=== PATIENT | female | born 1970 | race Caucasian/White ===

== ENCOUNTER 2017-02-13 19:13 | Emergency (ER) | payer SELFPAY ==
[~2017-02-13] VITALS: Ht 157.4 cm; Wt 72.6 kg
[~2017-02-13 19:13] MED LIST: AMOXICILLIN500 MG PO; COMBIVENT1 ARO IH; DONNATAL1 TAB PO; EFFEXOR75 MG PO; HYDROCODONE BIT1 T11 PO; PEPCID20 MG PO; PREDNISONE20 M1 PO; PROVENTIL0.09 MG/A1 INH; ROBAXIN750 MG PO; TRIMOX500 MG PO; ULTRAM50 MG PO; XANAX0.25 MG PO; ZYRTEC10 MG PO
[2017-02-13] MEDS ORDERED: VENTOLIN 02.5 MG/3 M INH (19:29)
[2017-02-13] MEDS ORDERED: ATIVAN0.5 MG PO (19:30)
[2017-02-13] MEDS ORDERED: PROAIR HFA8.5 GM INH (19:31)
[2017-02-13] MEDS ORDERED: PREDNISONE20 M1 PO (20:29)
== END 2017-02-13 20:35 | disposition home or self-care (01) ==
LOC: ED 19:13
DX: J45.901 Unspecified asthma with (acute) exacerbation (principal); F17.200 Nicotine dependence, unspecified, uncomplicated; Z88.6 Allergy status to analgesic agent

== ENCOUNTER 2017-05-07 03:29 | Emergency (ER) | payer SELFPAY ==
[~2017-05-07] VITALS: Ht 157.4 cm; Wt 70.3 kg
[~2017-05-07 03:29] MED LIST changes: +ATIVAN0.5 MG PO; +PROAIR HFA8.5 GM INH; +VENTOLIN 02.5 MG/3 M INH
[2017-05-07] MEDS ORDERED: PREDNISONE20 M1 PO (04:27)
[2017-05-07] MEDS ORDERED: DUONEB 3 MG/3 ML3 M1 INH (04:27)
[2017-05-07] MEDS ORDERED: ATIVAN1 MG PO (04:27)
== END 2017-05-07 04:47 | disposition home or self-care (01) ==
LOC: ED 03:29
DX: F41.1 Generalized anxiety disorder (principal); F43.0 Acute stress reaction; R06.02 Shortness of breath; J45.909 Unspecified asthma, uncomplicated; F17.200 Nicotine dependence, unspecified, uncomplicated; Z88.6 Allergy status to analgesic agent; Z79.899 Other long term (current) drug therapy

== ENCOUNTER 2017-06-28 13:56 | Emergency (ER) | payer SELFPAY ==
[~2017-06-28] VITALS: Ht 154.9 cm; Wt 70.3 kg
[~2017-06-28 13:56] MED LIST changes: +ATIVAN1 MG PO; +DUONEB 3 MG/3 ML3 M1 INH
[2017-06-28 14:24] LABS: BASO # 0.1 10*3/uL (0.0-0.1); BASO % 1.1 % (0.0-1.0); EOS # 0.8 10*3/uL (0.0-0.4); EOS % 9.8 % (1.0-4.0); HEMATOCRIT 32.7 % (37.0-47.0); HEMOGLOBIN 9.8 g/dl (12.0-16.0); LYMPH # 2.5 10*3/uL (1.3-4.4); LYMPH % 30.4 % (27.0-41.0); MEAN CELL VOLUME 81.1 fl (81.0-99.0); MEAN CORPUSCULAR HGB 24.3 pg (27.0-31.0); MEAN PLATELET VOLUME 10.7 fl (9.6-12.3); MONO # 0.7 10*3/uL (0.1-1.0); MONO % 8.4 % (3.0-9.0); NEUT # 4.2 10*3/uL (2.3-7.9); NEUT % 50.2 % (47.0-73.0); PLATELET COUNT AUTOMATED 286 10*3/uL (130-400); RED BLOOD COUNT 4.03 10*6/uL (4.10-5.10); RED CELL DISTRI WIDTH 17.6 % (0-14.5); WHITE BLOOD COUNT 8.4 10*3/uL (4.8-10.8)
[2017-06-28 14:40] LABS: ALBUMIN 3.3 gm/dl (3.1-4.5); ALKALINE PHOSPHATASE 78 U/L (45-117); BUN 12 mg/dl (7-24); CHLORIDE 109 mmol/L (98-107); CREATININE 0.76 mg/dL (0.55-1.02); POTASSIUM 3.8 mmol/L (3.5-5.1); SGOT/AST 19 IU/L (3-35); SGPT/ALT 27 U/L (12-78); SODIUM 139 mmol/L (136-145); TOTAL PROTEIN 6.9 gm/dL (6.4-8.2)
[2017-06-28] MEDS ORDERED: PREDNISONE10 MG PO (15:02)
== END 2017-06-28 17:10 | disposition home or self-care (01) ==
LOC: ED 13:56
PROVIDERS: Nurse Practitioner Family
DX: J45.909 Unspecified asthma, uncomplicated (principal); R03.0 Elevated blood-pressure reading, without diagnosis of hypertension; F17.200 Nicotine dependence, unspecified, uncomplicated; Z88.6 Allergy status to analgesic agent

== ENCOUNTER 2017-09-23 13:44 | Emergency (ER) | payer SELFPAY ==
[~2017-09-23] VITALS: Wt 70.3 kg
[~2017-09-23 13:44] MED LIST changes: +PREDNISONE10 MG PO
[2017-09-23 14:34] LABS: BASO # 0.1 10*3/uL (0.0-0.1); BASO % 0.6 % (0.0-1.0); EOS # 0.3 10*3/uL (0.0-0.4); EOS % 2.9 % (1.0-4.0); HEMATOCRIT 21.6 % (37.0-47.0); HEMOGLOBIN 6.2 g/dl (12.0-16.0); LYMPH # 1.8 10*3/uL (1.3-4.4); LYMPH % 20.7 % (27.0-41.0); MEAN CELL VOLUME 79.1 fl (81.0-99.0); MEAN CORPUSCULAR HGB 22.7 pg (27.0-31.0); MEAN CORPUSCULAR HGB CONC 28.7 g/dl (33.0-37.0); MEAN PLATELET VOLUME 10.1 fl (9.6-12.3); MONO # 0.6 10*3/uL (0.1-1.0); MONO % 6.4 % (3.0-9.0); NEUT % 69.2 % (47.0-73.0); PLATELET COUNT AUTOMATED 297 10*3/uL (130-400); RED BLOOD COUNT 2.73 10*6/uL (4.10-5.10); WHITE BLOOD COUNT 8.7 10*3/uL (4.8-10.8)
[2017-09-23 14:50] LABS: ALBUMIN 3.2 gm/dl (3.1-4.5); ALKALINE PHOSPHATASE 62 U/L (45-117); BUN 9 mg/dl (7-24); CHLORIDE 107 mmol/L (98-107); CREATININE 0.74 mg/dL (0.55-1.02); SGOT/AST 13 IU/L (3-35); SGPT/ALT 25 U/L (12-78); SODIUM 140 mmol/L (136-145); TOTAL PROTEIN 6.6 gm/dL (6.4-8.2)
[2017-09-23 14:51] LABS: B-hCG (QUALITATIVE) NEGATIVE (NEGATIVE)
[2017-09-23 14:53] LABS: ETHYL ALCOHOL < 3.0 mg/dl (<3); TROPONIN I < 0.015 ng/ml (<0.045)
[2017-09-23 21:56] LABS: HEMOGLOBIN 8.3 g/dl (12.0-16.0)
[2017-09-23] MEDS ORDERED: MEDROXYPROGESTER5 M1 PO (22:26)
== END 2017-09-23 22:55 | disposition home or self-care (01) ==
LOC: ED 13:44
PROVIDERS: Physician Assistant
DX: N93.8 Other specified abnormal uterine and vaginal bleeding (principal); D64.9 Anemia, unspecified; D25.9 Leiomyoma of uterus, unspecified; F17.200 Nicotine dependence, unspecified, uncomplicated; Z98.51 Tubal ligation status; Z79.899 Other long term (current) drug therapy; Z88.6 Allergy status to analgesic agent

== ENCOUNTER → 2017-10-05 | Outpatient (CLI) | payer SELFPAY ==
[~2017-10-05] MED LIST changes: +MEDROXYPROGESTER5 M1 PO; +PULMICORT FLEX90 MCG INH
[2017-10-05 12:15] LABS: BASO # 0.1 10*3/uL (0.0-0.1); BASO % 0.9 % (0.0-1.0); EOS # 0.4 10*3/uL (0.0-0.4); EOS % 5.3 % (1.0-4.0); HEMATOCRIT 27.5 % (37.0-47.0); HEMOGLOBIN 8.2 g/dl (12.0-16.0); MEAN CELL VOLUME 79.7 fl (81.0-99.0); MEAN CORPUSCULAR HGB 23.8 pg (27.0-31.0); MEAN CORPUSCULAR HGB CONC 29.8 g/dl (33.0-37.0); MEAN PLATELET VOLUME 10.1 fl (9.6-12.3); MONO # 0.6 10*3/uL (0.1-1.0); MONO % 7.7 % (3.0-9.0); NEUT # 4.9 10*3/uL (2.3-7.9); NEUT % 60.8 % (47.0-73.0); PLATELET COUNT AUTOMATED 368 10*3/uL (130-400); RED BLOOD COUNT 3.45 10*6/uL (4.10-5.10); RED CELL DISTRI WIDTH 16.9 % (0-14.5)
== END | disposition home or self-care (01) ==
LOC: LAB 10:53
PROVIDERS: Obstetrics & Gynecology
DX: N93.8 Other specified abnormal uterine and vaginal bleeding (principal)

== ENCOUNTER → 2017-10-12 | Day surgery (SDC) | payer SELFPAY ==
[~2017-10-12] VITALS: Ht 160 cm; Wt 70.3 kg
[2017-10-12] VITALS (8 sets, daily range): BP systolic 117–141; BP diastolic 48–82
--- NOTE | ~2017-10-12 | WRIGHTHP ---
[place], [place] PATIENT HISTORY AND PHYSICAL EXAM NAME: [facility] [id number] UNIT #: [id number] ROOM: DOCTOR: MARIA C MORELAND MD BIRTHDATE: [birth year] DOS: 10/12/2017 DATE OF SURGERY: 10/12/2017 PROCEDURES: Hysteroscopy, D and C, and NovaSure endometrial ablation. HISTORY OF PRESENT ILLNESS: This patient is a 47-year-old white female, 3, para 3, AB 0, status post tubal ligation, whose last menstrual period is difficult to say as she presented to the Emergency Room on 09/23/2017 complaining of dizziness, shakiness with several weeks' duration. She stated she has recently been started on Symbicort, but her blood work and been done a month ago indicating that her hemoglobin was quite low. At that time, she was told her hemoglobin was 5. The patient subsequently, when she came to the Emergency Room, was noted to have interesting and completely normal pulse, but had an H and H that was hemoglobin, which was in the range of approximately 6.5. The patient had been transfused 2 units of packed cells bringing her hemoglobin up to the level of approximately 8.3/27.0 and as already said her first H and H have been 6.2/21.6. The patient was feeling better and was discharged when ER had contacted the office in regard to next therapeutic steps. We recommended that she be followed up actually as an outpatient for hysteroscopy, D and C, NovaSure, and also a Pap smear. The risks, benefits, indications, potential complications, and alternatives have been reviewed with the patient. She has stated understanding and the consent will be signed on the day of surgery on 10/12/2017. PAST MEDICAL HISTORY: Reveals a history of 3 pregnancies and 3 vaginal deliveries. She has not had a Pap in a prolonged period of time. She does smoke about a half pack per day. She is status post tubal ligation as I mentioned. The ultrasound that had been performed on the day that she was in the Emergency Room did reveal a smaller anterior fibroid, but this was not impinging on the intrauterine cavity in any way. SOCIAL HISTORY: The patient does consume alcohol socially. ALLERGIES: She states no previous hospitalizations. MEDICATIONS: She does use Ativan 0.5 mg p.o. t.i.d. p.r.n. for anxiety. As I said, she had been on prednisone recently, I believe this is for asthma and this was tapered and Symbicort was just initiated, but I am not certain if she is still taking this or not. She does use albuterol inhaler 2 puffs up to q.i.d. p.r.n. as a rescue inhaler as well. REVIEW OF SYSTEMS: Otherwise were stable. FAMILY HISTORY: Does reveal some form of lymphatic malignancy in her mother and maternal grandmother had breast cancer. PHYSICAL EXAMINATION: Her physical exam is based on the ER record. GENERAL: They do not list her weight, they do list the pulse 78, respirations 16, blood pressure is 140/72. [place], [place] PATIENT HISTORY AND PHYSICAL EXAM NAME: KEENAN QUIÑONES UNIT #: [id number] ROOM: DOCTOR: MARIA C MORELAND MD BIRTHDATE: [birth year] HEENT: Per ER exam were stable. NECK: Per ER exam were stable. LUNGS: Per ER exam were stable. CARDIAC: Per ER exam were stable. BREASTS: Per ER exam were stable. ABDOMEN: Normal. EXTREMITIES: Grossly intact. NEUROLOGIC: Grossly intact. GENITOURINARY: External genitalia, vagina, and cervix all normal. The ultrasound ____ bimanual exam at least at this time, which was normal except for the small anterior fibroid with negative adnexa noted. RECTAL: Had been deferred. ASSESSMENT: Significant hypermenorrhea and dysfunctional uterine bleeding leading to rather extreme symptomatic anemia. The patient is status post tubal ligation. To that end, the patient has been transfused 2 units of packed cells, has had the appropriate increase in her H and H, and is scheduled on 10/12/2017 for hysteroscopy, D and C, NovaSure endometrial ablation, and Pap smear. MARIA C MORELAND MD CM:HISPHYS:PATIENT HISTORY AND PHYSICAL EXAMINATION [id number] MARIA C MORELAND MD 10/06/17 0610 interface
--- NOTE | ~2017-10-12 | O ---
[place], [place] OPERATIVE NOTE NAME: KEENAN QUIÑONES UNIT #: [id number] ROOM: DOCTOR: MARIA C CASTILLO MD BIRTHDATE: [birth year] DOS: 10/12/2017 PREOPERATIVE DIAGNOSES: Severe dysfunctional uterine bleeding, severe hypermenorrhea leading to anemia enough to require 2 units transfusion 2 weeks ago. POSTOPERATIVE DIAGNOSES: Severe dysfunctional uterine bleeding, severe hypermenorrhea leading to anemia enough to require 2 units transfusion 2 weeks ago. Copious amount of endometrial tissue removed in a patient who is not , but strongly suspicious under the circumstances for malignancy. PROCEDURE: Hysteroscopy, D and C, NovaSure endometrial ablation and Pap smear. SURGEON: Maria C Castillo M.D. ANESTHESIA: MAC along with paracervical block 2% Nesacaine, 5 mL each at 4 and 7 o'clock respectively. ESTIMATED BLOOD LOSS: About 50-75 mL. REPLACEMENTS: IV fluids and Toradol. COMPLICATIONS: There were no complications. CONDITION: The patient's condition to recovery stable. OPERATIVE SUMMARY: The patient was taken to the operating room, placed in supine position, administered MAC anesthesia, placed in lithotomy position, where she was prepped and draped in routine manner. The bladder was drained of about 40 mL of clear urine. After having grasped the cervix, we sounded the uterus to about 10 cm. The cervix did not require really any dilatation whatsoever. A Pap smear had been performed with a cytobrush and spatula. We then performed hysteroscopy, which revealed multiple amounts of free floating tissue and intrauterine apparent irregularity, but seemingly this was more from the copious amount of tissue inside the intrauterine cavity then anything else. Once the hysteroscopy was completed, we performed D and C with several different type of curets and stone forceps and again with a negative test, there was a copious amount of tissue removed consistent with either extreme hyperplastic situation or malignant situation. One might wonder why we had done this as opposed to doing a full workup before going to the operating room and the reason was that I was not available after the patient was in the Emergency Room until now and I am only going to be working for another week and then will be retired and I am trying to do everything I can to slow this bleeding down for this patient as well as make a diagnosis and if she does in fact have to be referred to a [facility] [employer] oncologist then so be it. This is logistically the best we could do with a short timeframe that we have left. Once this copious amount of tissue was removed, we then placed our NovaSure device and after achieving appropriate depth and width we proceeded with NovaSure ablation. Once this was completed, a repeat hysteroscopy did suggest a reasonably good ablation and the bleeding certainly had diminished significantly following the D and C and the [place], [place] OPERATIVE NOTE NAME: KEENAN QUIÑONES UNIT #: [id number] ROOM: DOCTOR: MARIA C CASTILLO MD BIRTHDATE: [birth year] ablation. All instrumentation was removed. The Pap and the intrauterine contents sent for analysis by pathology. The patient was cleaned off after noting good hemostasis, otherwise she was taken out of lithotomy position, awakened and transferred to recovery in satisfactory condition with stable sponge and instrument count, reasonably good hemostasis and stable vital signs. MARIA C CASTILLO MD CM:OPRECORD:OPERATIVE NOTE [id number] MARIA C CASTILLO MD 10/12/17 1630 interface
--- NOTE | 2017-10-12 13:10 | NUR ---
CLIENT REMAINS ANXIOUS, CRYING AT TIMES. MEDICATED WITH A SECOND DOSE OF VERSED PER PRN ORDER
--- NOTE | 2017-10-12 13:17 | NUR ---
CLIENT NODS "YES" WHEN ASKED IF SECOND DOSE OF VERSED HELPED HER RELAX
== END | disposition home or self-care (01) ==
LOC: SDC 10-05 11:00
PROVIDERS: Obstetrics & Gynecology
DX: N85.9 Noninflammatory disorder of uterus, unspecified (principal); N93.8 Other specified abnormal uterine and vaginal bleeding; N92.0 Excessive and frequent menstruation with regular cycle; J45.909 Unspecified asthma, uncomplicated; F41.9 Anxiety disorder, unspecified; K21.9 Gastro-esophageal reflux disease without esophagitis; Z80.9 Family history of malignant neoplasm, unspecified; F17.210 Nicotine dependence, cigarettes, uncomplicated; Z98.51 Tubal ligation status; Z98.890 Other specified postprocedural states; Z88.8 Allergy status to other drugs, medicaments and biological substances

== ENCOUNTER → 2018-02-23 | Outpatient (CLI) | payer OTHER ==
[2018-02-23 16:20] LABS: HEMATOCRIT 34.6 % (37.0-47.0); HEMOGLOBIN 9.8 g/dl (12.0-16.0); MEAN CELL VOLUME 76.5 fl (81.0-99.0); MEAN CORPUSCULAR HGB 21.7 pg (27.0-31.0); MEAN CORPUSCULAR HGB CONC 28.3 g/dl (33.0-37.0); RED BLOOD COUNT 4.52 10*6/uL (4.10-5.10); WHITE BLOOD COUNT 8.7 10*3/uL (4.8-10.8)
[2018-02-23 16:48] LABS: ALBUMIN 3.6 gm/dl (3.1-4.5); ALKALINE PHOSPHATASE 67 U/L (45-117); BUN 9 mg/dl (7-24); CHLORIDE 106 mmol/L (98-107); CHOLESTEROL 213 mg/dL (<200); CREATININE 0.69 mg/dL (0.55-1.02); HDL CHOLESTEROL 74 mg/dl (40-60); LDL CHOLESTEROL 100 mg/dL (9-159); POTASSIUM 3.8 mmol/L (3.5-5.1); SGOT/AST 16 IU/L (3-35); SGPT/ALT 22 U/L (12-78); SODIUM 139 mmol/L (136-145); TRIGLYCERIDES 193 mg/dl (<150); VLDL CHOLESTEROL 39 mg/dL (6-40)
== END | disposition home or self-care (01) ==
LOC: LAB 15:39
PROVIDERS: Registered Nurse Flight
DX: Z13.220 Encounter for screening for lipoid disorders (principal); Z00.00 Encounter for general adult medical examination without abnormal findings; F41.9 Anxiety disorder, unspecified; D64.9 Anemia, unspecified; R79.89 Other specified abnormal findings of blood chemistry

== ENCOUNTER → 2018-04-06 | Outpatient (CLI) | payer OTHER ==
[2018-04-06 16:21] LABS: BASO # 0.1 10*3/uL (0.0-0.1); BASO % 0.9 % (0.0-1.0); EOS # 0.3 10*3/uL (0.0-0.4); EOS % 4.2 % (1.0-4.0); HEMATOCRIT 36.4 % (37.0-47.0); HEMOGLOBIN 10.7 g/dl (12.0-16.0); LYMPH # 2.2 10*3/uL (1.3-4.4); LYMPH % 28.2 % (27.0-41.0); MEAN CELL VOLUME 79.6 fl (81.0-99.0); MEAN CORPUSCULAR HGB 23.4 pg (27.0-31.0); MEAN CORPUSCULAR HGB CONC 29.4 g/dl (33.0-37.0); MEAN PLATELET VOLUME 11.4 fl (9.6-12.3); MONO # 0.6 10*3/uL (0.1-1.0); MONO % 7.3 % (3.0-9.0); NEUT # 4.7 10*3/uL (2.3-7.9); NEUT % 59.1 % (47.0-73.0); PLATELET COUNT AUTOMATED 259 10*3/uL (130-400); RED BLOOD COUNT 4.57 10*6/uL (4.10-5.10); RED CELL DISTRI WIDTH 21.3 % (0-14.5); WHITE BLOOD COUNT 7.9 10*3/uL (4.8-10.8)
== END | disposition home or self-care (01) ==
LOC: LAB 15:04
PROVIDERS: Registered Nurse Flight
DX: D64.9 Anemia, unspecified (principal)

== ENCOUNTER 2018-05-24 01:11 | Emergency (ER) | payer OTHER ==
[~2018-05-24] VITALS: Ht 160 cm; Wt 70.3 kg
[2018-05-24] MEDS ORDERED: FLONASE ALLERG9.9 ML NAS (01:37)
== END 2018-05-24 01:52 | disposition home or self-care (01) ==
LOC: ED 01:11
DX: J06.9 Acute upper respiratory infection, unspecified (principal); Z88.6 Allergy status to analgesic agent

== ENCOUNTER → 2018-08-24 | Outpatient (CLI) | payer OTHER ==
[~2018-08-24] MED LIST changes: +FLONASE ALLERG9.9 ML NAS
[2018-08-24 14:13] LABS: CHLORIDE 108 mmol/L (98-107); CREATININE 0.79 mg/dL (0.55-1.02); SGOT/AST 17 IU/L (3-35); SGPT/ALT 32 U/L (12-78); SODIUM 141 mmol/L (136-145)
[2018-08-24 14:23] LABS: ALBUMIN 3.9 gm/dl (3.1-4.5); ALKALINE PHOSPHATASE 65 U/L (45-117); BUN 12 mg/dl (7-24); CHOLESTEROL 241 mg/dL (<200); HDL CHOLESTEROL 67 mg/dl (40-60); IRON 49 ug/dL (50-170); LDL CHOLESTEROL 130 mg/dL (9-159); TOTAL IRON BINDING CAPACITY 481 ug/dl (250-450); TOTAL PROTEIN 7.4 gm/dL (6.4-8.2); TRIGLYCERIDES 220 mg/dl (<150); VLDL CHOLESTEROL 44 mg/dL (6-40)
[2018-08-24 14:53] LABS: BASO # 0.1 10*3/uL (0.0-0.1); BASO % 1.4 % (0.0-1.0); EOS # 0.3 10*3/uL (0.0-0.4); EOS % 4.6 % (1.0-4.0); HEMATOCRIT 40.9 % (37.0-47.0); HEMOGLOBIN 12.3 g/dl (12.0-16.0); MEAN CELL VOLUME 86.5 fl (81.0-99.0); MEAN CORPUSCULAR HGB CONC 30.1 g/dl (33.0-37.0); MEAN PLATELET VOLUME 11.4 fl (9.6-12.3); MONO # 0.6 10*3/uL (0.1-1.0); MONO % 9.4 % (3.0-9.0); NEUT # 3.6 10*3/uL (2.3-7.9); NEUT % 54.4 % (47.0-73.0); PLATELET COUNT AUTOMATED 268 10*3/uL (130-400); RED BLOOD COUNT 4.73 10*6/uL (4.10-5.10); RED CELL DISTRI WIDTH 17.6 % (0-14.5); WHITE BLOOD COUNT 6.6 10*3/uL (4.8-10.8)
[2018-08-24 15:08] LABS: VITAMIN D, 25-HYDROXY 12.6 ng/mL (30-100)
== END | disposition home or self-care (01) ==
LOC: LAB 11:54
PROVIDERS: Registered Nurse Flight
DX: Z13.220 Encounter for screening for lipoid disorders (principal); D64.9 Anemia, unspecified; F41.9 Anxiety disorder, unspecified; E55.9 Vitamin D deficiency, unspecified; E78.00 Pure hypercholesterolemia, unspecified

== ENCOUNTER 2020-12-08 01:50 | Emergency (ER) | payer OTHER ==
[~2020-12-08] VITALS: Ht 157.4 cm; Wt 81.6 kg
[2020-12-08] MEDS ORDERED: HYDROCODONE-AC1 EAC1 PO (06:11)
== END 2020-12-08 06:19 | disposition home or self-care (01) ==
LOC: ED 01:50
DX: S82.841A Displaced bimalleolar fracture of right lower leg, initial encounter for closed fracture (principal); J45.909 Unspecified asthma, uncomplicated; F41.9 Anxiety disorder, unspecified; K21.9 Gastro-esophageal reflux disease without esophagitis; F17.200 Nicotine dependence, unspecified, uncomplicated; Z88.6 Allergy status to analgesic agent; Z88.8 Allergy status to other drugs, medicaments and biological substances; Z79.899 Other long term (current) drug therapy; Z98.51 Tubal ligation status; W01.198A Fall on same level from slipping, tripping and stumbling with subsequent striking against other object, initial encounter; Y93.89 Activity, other specified; Y92.89 Other specified places as the place of occurrence of the external cause; Y99.8 Other external cause status

== ENCOUNTER → 2021-04-22 | Outpatient (CLI) | payer OTHER ==
[~2021-04-22] MED LIST changes: +HYDROCODONE-AC1 EAC1 PO
[2021-04-22 14:10] LABS: BASO # 0.1 10*3/uL (0.0-0.1); BASO % 0.7 % (0.0-1.0); EOS # 0.4 10*3/uL (0.0-0.4); EOS % 4.8 % (1.0-4.0); HEMATOCRIT 42.8 % (37.0-47.0); LYMPH # 2.1 10*3/uL (1.3-4.4); LYMPH % 24.8 % (27.0-41.0); MEAN CORPUSCULAR HGB 30.2 pg (27.0-31.0); MEAN CORPUSCULAR HGB CONC 32.5 g/dl (33.0-37.0); MEAN PLATELET VOLUME 10.8 fl (9.6-12.3); MONO # 0.6 10*3/uL (0.1-1.0); MONO % 7.1 % (3.0-9.0); NEUT # 5.2 10*3/uL (2.3-7.9); NEUT % 62.4 % (47.0-73.0); PLATELET COUNT AUTOMATED 244 10*3/uL (130-400); RED CELL DISTRI WIDTH 13.1 % (0-14.5); WHITE BLOOD COUNT 8.4 10*3/uL (4.8-10.8)
[2021-04-22 14:47] LABS: ALBUMIN 3.4 gm/dl (3.1-4.5); ALKALINE PHOSPHATASE 97 U/L (45-117); BUN 10 mg/dl (7-24); CHLORIDE 110 mmol/L (98-107); CHOLESTEROL 237 mg/dL (<200); CREATININE 0.74 mg/dL (0.55-1.02); LDL CHOLESTEROL 137 mg/dL (9-159); POTASSIUM 4.4 mmol/L (3.5-5.1); SGOT/AST 17 IU/L (3-35); SGPT/ALT 31 U/L (12-78); SODIUM 141 mmol/L (136-145); TOTAL IRON BINDING CAPACITY 363 ug/dl (250-450); TRIGLYCERIDES 197 mg/dl (<150)
[2021-04-22 14:56] LABS: VITAMIN D, 25-HYDROXY 12.1 ng/mL (30-100)
== END | disposition home or self-care (01) ==
LOC: LAB 13:20
PROVIDERS: ATTEND Nurse Practitioner Family
DX: Z00.00 Encounter for general adult medical examination without abnormal findings (principal); D50.9 Iron deficiency anemia, unspecified; E55.9 Vitamin D deficiency, unspecified; E78.5 Hyperlipidemia, unspecified

== ENCOUNTER 2023-12-30 02:47 | Emergency (ER) | payer MEDICARE ==
[~2023-12-30] VITALS: Ht 157.4 cm; Wt 72.6 kg
[2023-12-30] MEDS ORDERED: ZITHROMAX250 MG PO (03:56)
[2023-12-30] MEDS ORDERED: PREDNISONE50 MG PO (03:56)
[2023-12-30] MEDS ORDERED: AMOX-CLAV 875-1 EACH PO (03:58)
== END 2023-12-30 04:05 | disposition home or self-care (01) ==
LOC: ED 02:47
DX: J45.909 Unspecified asthma, uncomplicated (principal); Z20.822 Contact with and (suspected) exposure to COVID-19; F41.9 Anxiety disorder, unspecified; K21.9 Gastro-esophageal reflux disease without esophagitis; Z88.6 Allergy status to analgesic agent; Z98.51 Tubal ligation status; Z98.890 Other specified postprocedural states; F17.210 Nicotine dependence, cigarettes, uncomplicated

== ENCOUNTER 2024-08-20 14:01 | Emergency (ER) | payer MEDICARE ==
[~2024-08-20] VITALS: Ht 160 cm; Wt 90.7 kg
[~2024-08-20 14:01] MED LIST changes: +AMOX-CLAV 875-1 EACH PO; +PREDNISONE50 MG PO; +ZITHROMAX250 MG PO
[2024-08-20] MEDS ORDERED: Acetaminophen/Hydrocodone 5 MG/325 MG TABLET PO ONE (17:25)
[2024-08-20] MEDS ORDERED: HYDROCODONE-AC1 EAC1 PO (17:30)
== END 2024-08-20 17:30 | disposition home or self-care (01) ==
LOC: ED 14:01
DX: S42.292A Other displaced fracture of upper end of left humerus, initial encounter for closed fracture (principal); Z88.6 Allergy status to analgesic agent; Z98.51 Tubal ligation status; Z98.890 Other specified postprocedural states; W01.0XXA Fall on same level from slipping, tripping and stumbling without subsequent striking against object, initial encounter; Y92.009 Unspecified place in unspecified non-institutional (private) residence as the place of occurrence of the external cause; Y93.89 Activity, other specified; Y99.8 Other external cause status

== ENCOUNTER 2025-09-24 01:42 | Emergency (ER) | payer MEDICARE ==
[~2025-09-24] VITALS: Ht 157.4 cm; Wt 77.1 kg
[2025-09-24 02:45] LABS: BASO # 0.1 10*3/uL (0.0-0.1); BASO % 0.7 % (0.0-1.0); EOS # 0.2 10*3/uL (0.0-0.4); EOS % 2.6 % (1.0-4.0); MEAN CELL VOLUME 94.8 fl (81.0-99.0); MEAN CORPUSCULAR HGB 30.0 pg (27.0-31.0); MEAN PLATELET VOLUME 10.4 fl (9.6-12.3); MONO # 0.7 10*3/uL (0.1-1.0); MONO % 9.6 % (3.0-9.0); NEUT # 3.9 10*3/uL (2.3-7.9); NEUT % 55.4 % (47.0-73.0); NUCLEATED RED BLOOD CELL 0.0 % (0.0-0.0); NUCLEATED RED BLOOD CELL 0.0 10*3/uL (0.0-0.0); PLATELET COUNT AUTOMATED 186 10*3/uL (130-400); RED CELL DISTRI WIDTH 13.5 % (0-14.5)
[2025-09-24 03:09] LABS: BUN 14 mg/dl (9-23)
[2025-09-24] MEDS ORDERED: BENZONATATE100 M1 PO (04:36)
== END 2025-09-24 04:54 | disposition home or self-care (01) ==
LOC: ED 01:42
PROVIDERS: Emergency Medicine
DX: J06.9 Acute upper respiratory infection, unspecified (principal); B97.89 Other viral agents as the cause of diseases classified elsewhere; J45.909 Unspecified asthma, uncomplicated; Z20.822 Contact with and (suspected) exposure to COVID-19; Z79.899 Other long term (current) drug therapy; Z88.6 Allergy status to analgesic agent; Z98.51 Tubal ligation status; Z98.890 Other specified postprocedural states

== ENCOUNTER 2025-10-31 19:44 | Emergency (ER) | payer MEDICARE ==
[~2025-10-31] VITALS: Ht 157.4 cm; Wt 79.4 kg
[~2025-10-31 19:44] MED LIST changes: +BENZONATATE100 M1 PO
[2025-10-31] MEDS ORDERED: Albuterol Sulf/Ipratropium 3 ML VIAL NEB ONE (20:20)
[2025-10-31 20:34] LABS: BASO # 0.1 10*3/uL (0.0-0.1); BASO % 1.2 % (0.0-1.0); EOS # 1.3 10*3/uL (0.0-0.4); EOS % 10.8 % (1.0-4.0); MEAN CELL VOLUME 94.4 fl (81.0-99.0); MEAN CORPUSCULAR HGB 30.5 pg (27.0-31.0); MEAN PLATELET VOLUME 10.5 fl (9.6-12.3); MONO # 0.9 10*3/uL (0.1-1.0); MONO % 7.6 % (3.0-9.0); NEUT # 6.6 10*3/uL (2.3-7.9); NEUT % 56.3 % (47.0-73.0); NUCLEATED RED BLOOD CELL 0.0 % (0.0-0.0); NUCLEATED RED BLOOD CELL 0.0 10*3/uL (0.0-0.0); PLATELET COUNT AUTOMATED 228 10*3/uL (130-400); RED CELL DISTRI WIDTH 12.8 % (0-14.5)
[2025-10-31 20:49] LABS: BUN 12 mg/dl (9-23)
[2025-10-31] MEDS ORDERED: PREDNISONE20 M1 PO (21:43)
[2025-10-31] MEDS ORDERED: AMOX-CLAV 875-1 EACH PO (21:43)
[2025-10-31] MEDS ORDERED: Amoxicillin/Clavulanate Pota 875 MG TAB PO ONE (21:45)
== END 2025-10-31 21:39 | disposition home or self-care (01) ==
LOC: ED 19:44
PROVIDERS: Nurse Practitioner Family
DX: J45.909 Unspecified asthma, uncomplicated (principal); F41.9 Anxiety disorder, unspecified; K21.9 Gastro-esophageal reflux disease without esophagitis; Z88.6 Allergy status to analgesic agent